=== PATIENT | male | born 1980 | race Caucasian/White ===

== ENCOUNTER 2021-12-19 08:05 | Emergency (ER) | payer MEDICARE, MEDICAID, SELFPAY ==
--- NOTE | ~2021-12-19 | CT_ITS ---
EXAMINATION: CT HEAD WITHOUT CONTRAST CLINICAL INFORMATION: Injury, rule out intracranial abnormality. COMPARISON: Head CT scan dated 10/06/2017. TECHNIQUE: Contiguous axial imaging was performed from the skull base to vertex without intravenous administration of contrast. Coronal and sagittal reformatted images were obtained. This CT examination was performed using dose optimization techniques as appropriate, variously including the following: *Automated exposure control *Adjustment of mA and/or kV according to patient size (this includes techniques or standardized protocols for targeted exams where dose is matched to indication/reason for exam; i.e. extremities or head) *Use of iterative reconstruction technique DLP: 719 mGy-cm FINDINGS: The cortical sulci are normal. The lateral ventricles are symmetrical. The third and fourth ventricles are in their normal midline position. The basilar and prepontine cisterns are unremarkable. There is no acute intra or extracerebral abnormality. There is no mass effect or midline shift. Sections through the bony calvarium are unremarkable. The paranasal sinuses are clear. The bony orbits and orbital contents are unremarkable. Mild mid nasal septal deviation, apex the left. CT/CT head/brain wo IV con IMPRESSION: No acute intracranial pathology.
[2021-12-19 08:08] VITALS: BP 120/64; PULSE 80; RESP 18; TEMP 36.8; O2SAT 96; BMI 26.4
--- NOTE | 2021-12-19 10:28 | ED_ITS ---
HPI - Head Injury General Chief complaint: Head Injury Stated complaint: head laceration Time Seen by Provider: 12/19/21 09:25 History of Present Illness HPI Narrative: Patient complains of laceration, headache, dizziness and 1 episode of vomiting after he accidentally hit himself in the head with the back of an Axe while splitting wood yesterday, no loss of consciousness, no retrograde amnesia no confusion Related Data Allergies Allergy/AdvReac Type Severity Reaction Status Date / Time latex [LATEX] Allergy Mild RASH Unverified 12/06/19 15:33 Review of Systems Review of Systems: Positive for headache dizziness and nausea after head injury yesterday Negatives are no loss of consciousness no retrograde amnesia no confusion no f ainting no feeling faint no vision changes no neck pain no numbness weakness or tingling no chest pain no shortness breath no abdominal pain no extremity pains or injuries no numbness no weakness no tingling Yes all other systems are reviewed and are negative PMFSH Past Medical History Source: nursing notes reviewed Social History Social History Advance Directives: No Advance Directives Information Provided: No Physical Exam Vital Signs: Vital Signs: Last Vital Signs Temp 98.2 F 12/19/21 08:08 Pulse 80 12/19/21 08:08 Resp 18 12/19/21 08:08 BP 120/64 12/19/21 08:08 Pulse Ox 96 12/19/21 08:08 O2 Del Method 12/19/21 08:08 BMI result Body Mass Index 26.4 General appearance comfortable no distress Head there is a 1.5 cm close laceration and a small hematoma at its base on the top of the scalp, there is no deformity felt, no raccoon eyes no Whitaker sign The neck is supple and nontender The chest is clear to auscultation no chest wall tenderness Abdomen soft nontender Extremities for range of motion x4 Neuro cranial nerves 2-12 intact as tested, cerebellar exam is normal, gait and balance are normal, interaction both comprehension and expression are normal and motor is 5/5 x4 Course Course Course Narrative: Head CT was negative, patient possibly has a concussion but no evidence of any dangerous injury he ambulates normally and is well-appearing The laceration on his head is 24 hours old and basically closed so no suturing was done Discharge Plan Discharge Clinical Impression: Laceration of scalp, Concussion Patient Disposition: Home, Self-Care Additional Instructions: The CT of her head was negative meaning no skull fracture no bleeding in the he ad no sign of any dangerous injury You may have a mild concussion which usually resolves on its own in a short amount of time The laceration 24 hours hold was already mostly closed it was not gaping and did not need any stitches now Return any time for any worse condition or any concerns Referrals: Tao Roberts MD [Primary Care Provider] - 1 Week Interventions: ED Discharge Assessment Last Done: 12/19/21 10:44 Discharge Date/Time: 12/19/21 10:44
== END 2021-12-19 10:44 | disposition home or self-care (01) ==
PROVIDERS: Emergency Provider Emergency Medicine; PCP Internal Medicine
DX: S01.01XA Laceration without foreign body of scalp, initial encounter (principal); S06.0X0A Concussion without loss of consciousness, initial encounter; W27.0XXA Contact with workbench tool, initial encounter; Y93.89 Activity, other specified; Y92.017 Garden or yard in single-family (private) house as the place of occurrence of the external cause; Y99.9 Unspecified external cause status
CPT/HCPCS: 70450; 99283; 99284

== ENCOUNTER 2021-12-23 16:23 | Emergency (ER) | payer MEDICARE, MEDICAID, SELFPAY ==
--- NOTE | ~2021-12-23 | XR_ITS ---
EXAMINATION: XR KNEE, RIGHT CLINICAL INFORMATION: Question foreign body COMPARISON: None TECHNIQUE: AP, lateral, and both oblique views of the right knee. FINDINGS: There is prepatellar soft tissue swelling. No fracture or malalignment. Joint spaces are well-preserved. No effusion. Bone mineralization is normal. No subcutaneous gas or radiodense foreign bodies. XR/XR knee RT 3V IMPRESSION: Prepatellar soft tissue swelling. No radiodense foreign bodies or subcutaneous gas. No effusion.
--- NOTE | ~2021-12-23 | XR_ITS ---
EXAMINATION: XR CHEST CLINICAL INFORMATION: Cough COMPARISON: Chest CT 10/06/2017 TECHNIQUE: Frontal view of the chest was obtained. FINDINGS: No mass or focal pneumonia. Normal lung volumes. No effusion or pneumothorax. Grossly normal heart and mediastinum, patient rotated to right. Nonobstructive gas pattern. No rib fracture. XR/XR chest 1V IMPRESSION: Unremarkable examination.
[2021-12-23 16:57] VITALS: BP 113/63; PULSE 84; RESP 16; TEMP 36.2; O2SAT 95; BMI 26.4
[2021-12-23 18:00] LABS: Influenza A PCR NEGATIVE (Negative); Influenza B PCR NEGATIVE (Negative); Resp Syncy Virus RNA Qual PCR NEGATIVE (Negative); SARS COV2 PCR INHOUSE NEGATIVE (Negative)
[2021-12-23 19:00] LABS: MANUAL DIFF FLAG NO
[2021-12-23 19:07] LABS: Basophils Absolute Auto 0.1 X10*3/uL (0.0-0.2); Basophils Percent Auto 0.5 % (0-2); Eosinophils Percent Auto 8.3 % (0-4); Hematocrit 37.3 % (42.0-52.0); Hemoglobin 12.7 g/dl (14.0-18.0); Imm Gran Abs Auto 0.05 X10*3/uL (0.00-0.03); Imm Gran Pct Auto 0.4 % (0.0-0.4); Lymphocytes Absolute Auto 1.9 X10*3/uL (1.2-4.9); Lymphocytes Percent Auto 16.5 % (20-40); Mean Corpuscular Hemoglobin 28.9 pg (27.0-33.0); Mean Platelet Volume 8.9 fL (9.4-12.4); Monocytes Absolute Auto 1.1 X10*3/uL (0.1-1.2); Monocytes Percent Auto 9.2 % (2-11); Neutrophils Absolute Auto 7.6 x10*3/uL (2.0-8.3); Neutrophils Percent Auto 65.1 % (45-73); Platelet Count 265 X10*3/uL (160-400); Red Blood Count 4.39 X10*6/uL (4.60-5.80); Red Cell Distribution Width 13.6 % (11.0-16.0); White Blood Count 11.7 X10*3/uL (4.8-10.8)
[2021-12-23 19:23] LABS: Alanine Aminotransferase 16 U/L (0-40); Albumin Level 4.3 g/dL (3.5-5.0); Alkaline Phosphatase 66 U/L (39-117); Anion Gap 16 (12-20); Aspartate Amino Transferase 20 U/L (5-37); Bilirubin Total 0.4 mg/dL (0.0-1.0); Blood Urea Nitrogen 11 mg/dL (9-16); Calcium 8.8 mg/dL (8.4-10.2); Carbon Dioxide 28 mmol/L (22-29); Chloride 99 mmol/L (96-108); Creatinine Clr Calc Pharmacy 110.9; Estimated Glomerular Filt Rate > 60; Glucose Random 118 mg/dL (60-115); Potassium 4.6 mmol/L (3.3-5.1); Sodium 138 mmol/L (135-145); Total Protein 6.6 g/dL (6.5-8.0)
[2021-12-23 20:22] VITALS: BP 134/58; PULSE 74; RESP 11; TEMP 37.2; O2SAT 95
--- NOTE | 2021-12-24 00:24 | ED_ITS ---
HPI - General Adult General Chief complaint: Upper Respiratory Symptoms Stated complaint: cough, congested? drug problem Time Seen by Provider: 12/23/21 22:15 Source: patient Mode of arrival: ambulatory Limitations: no limitations History of Present Illness HPI narrative: Patient presents emergency department with multiple complaints. He states that he has been experiencing a productive cough with yellow phlegm for approximately 2 weeks. He denies any chest pain associated with this. He is also reporting a concern for infection to his right knee. States he has had swelling and redness for approximately 1 week. States while at work he kneeled down onto something and thinks there may be a piece of glass in the knee. It is painful. He is able to ambulate with steady gait, and able to move the knee without complication. Furthermore, he reports a history of IV drug use, states that he is using heroin and crack cocaine and would like to see detox for this. Denies alcohol consumption. Denies suicidal or homicidal ideations. Overall, he denies any fevers, chills, headache, dizziness, lightheadedness, chest pain, palpitations, shortness of breath, difficulty breathing, nausea, vomiting, abdominal pain, numbness or tingling to the extremities, generalized weakness. Related Data Previous Rx's Medication Instructions Recorded cephalexin 500 mg capsule 500 mg PO QID 7 days #28 caps 12/24/21 doxycycline hyclate 100 mg capsule 100 mg PO BID 7 days #14 caps 12/24/21 Allergies Allergy/AdvReac Type Severity Reaction Status Date / Time latex [LATEX] Allergy Mild RASH Verified 12/23/21 17:02 Review of Systems Review of Systems: Constitutional: No weight loss, fever, chills, weakness or fatigue. Skin: No rash or itching. Cardiovascular: No chest pain, chest pressure or chest discomfort. No palpitations or pedal edema. Respiratory: No shortness of breath. Positive cough with sputum production Gastrointestinal: No anorexia, nausea, vomiting or diarrhea. No abdominal pain Genitourinary: No burning micturition. No urinary frequency or incontinence. Musculoskeletal: No muscle pain, back pain. Positive knee pain with concern for infection Psychiatric: No depression or anxiety. Yes all other systems are reviewed and are negative PMFSH Past Medical History Attestation statement: The following information was validated with the patient. Source: old records reviewed Social History Social History (Reviewed 12/24/21 @ 01:17 by SAMANTHA Mcqueen Advance Directives: No Advance Directives Information Provided: No Physical Exam ED Vital Signs: Vital Signs - 24 hr 12/23/21 16:57 12/23/21 20:22 Temperature 97.2 F 99.0 F Pulse Rate 84 74 Respiratory Rate 16 11 L Blood Pressure 113/63 134/58 L Pulse Oximetry 95 95 Oxygen Delivery Method Room Air Room Air BMI result Body Mass Index 26.4 Appearance: Alert.?Oriented to person, place and time. No acute distress.?Normal affect. Eyes: Pupils equal, round and reactive to light.? ENT: Pharynx normal.?? Neck: Normal inspection.? Neck supple.?? CVS: Heart sounds normal. Normal heart rate and rhythm.? Pulses normal.?? Respiratory: No respiratory distress.? Lung sounds clear to auscultation bilaterally?? Abdomen: Soft and non-tender. Normoactive bowel sounds. ? Skin: Skin warm and dry.? Normal skin color.? ? Extremities: No lower extremity edema.? No calf ttp. Left knee with prepatellar erythema, warmth, swelling, and small areas central fluctuance and purulence. Full AROM to the right knee. Palpable 2+ DP/PT pulse bilaterally Neuro: Moves all extremities spontaneously. Sensation intact bilaterally. CN II- XII intact. No focal neuro deficits. Ambulates with normal steady gait. Course Course Course Narrative: Review of labs obtained from triage reveals a very mild leukocytosis at 11.7, normocytic anemia, and unremarkable CMP. COVID-19, influenza, and RSV testing are negative. He is overall well-appearing. Afebrile, without tachycardia, tachypnea, or hypoxia. Speaking clear full sentences. Lung sounds are clear bilaterally. Given productive cough over the past few weeks suspect bronchitis, discussed plan of care for treatment with supportive measures. In the event that there is a community acquired pneumonia that was not identified on chest x- ray, patient is going to be started on doxycycline for cellulitis which will also cover CAP. Regarding his right knee, there is a very small pocket of pus very superficially, needle aspiration with less than 0.5 mL of pus able to be drained, there is surrounding cellulitis and erythema, he is concerned that there may be retained foreign body therefore will obtain XR for further hanna luation. Regarding his request for detox, will refer patient to care team/ coach operator for assistance. Reevaluation(s) Reevaluation #1: X-ray of the right knee reveals no radiodense foreign body or subcutaneous gas. There is prepatellar soft tissue swelling consistent with physical examination. Again reviewed plan of care. Cough likely secondary to bronchitis, possible community-acquired pneumonia not detected on chest x-ray. Right knee consistent with prepatellar cellulitis, given history of IV drug use will cover with cephalexin and doxycycline. Patient evaluated by care team and is requesting detox for heroin and crack cocaine at this time, offered to stay overnight so that he may speak with coach operator in the morning and have assistance with detox. Patient declines at this time. He would like to be discharged. Reviewed worsening signs symptoms to return back to emergency department for care all questions were answered. Patient discharged home in stable condition. Medical Decision Making Medical Records Medical records reviewed: Yes I reviewed the patient's medical records. Lab Data Lab results reviewed: Yes I reviewed the patient's lab results. Result diagrams: 12/23/21 18:55 12/23/21 18:55 Labs: Lab Results 12/23/21 12/23/21 12/23/21 Range/Units 17:06 18:55 18:55 WBC 11.7 H (4.8-10.8) X10*3/uL RBC 4.39 L (4.60-5.80) X10*6/uL Hgb 12.7 L (14.0-18.0) g/dl Hct 37.3 L (42.0-52.0) % MCV 85.0 (80.0-98.0) fL MCH 28.9 (27.0-33.0) pg MCHC 34.0 (31.0-36.0) g/dl RDW 13.6 (11.0-16.0) % Plt Count 265 (160-400) X10*3/uL MPV 8.9 L (9.4-12.4) fL Immature Gran % (Auto) 0.4 (0.0-0.4) % Neut % (Auto) 65.1 (45-73) % Lymph % (Auto) 16.5 L (20-40) % Charles % (Auto) 9.2 (2-11) % Eos % (Auto) 8.3 H (0-4) % Baso % (Auto) 0.5 (0-2) % Lymph # (Auto) 1.9 (1.2-4.9) X10*3/uL Charles # (Auto) 1.1 (0.1-1.2) X10*3/uL Eos # (Auto) 1.0 H (0.0-0.4) X10*3/uL Baso # (Auto) 0.1 (0.0-0.2) X10*3/uL Abs Immat Gran (auto) 0.05 H (0.00-0.03) X10*3/uL Absolute Neuts (auto) 7.6 (2.0-8.3) x10*3/uL Absolute Nucleated RBC 0.000 (0.0-0.012) X10*3/uL Nucleated RBC % (auto) 0.0 (0.0-0.2) /100WBC Sodium 138 (135-145) mmol/L Potassium 4.6 (3.3-5.1) mmol/L Chloride 99 (96-108) mmol/L Carbon Dioxide 28 (22-29) mmol/L Anion Gap 16 (12-20) BUN 11 (9-16) mg/dL Creatinine 1.00 (0.5-1.4) mg/dL Estim Creat Clear Calc 110.9 Estimated GFR > 60 Random Glucose 118 H (60-115) mg/dL Calcium 8.8 (8.4-10.2) mg/dL Total Bilirubin 0.4 (0.0-1.0) mg/dL AST 20 (5-37) U/L ALT 16 (0-40) U/L Alkaline Phosphatase 66 (39-117) U/L Total Protein 6.6 (6.5-8.0) g/dL Albumin 4.3 (3.5-5.0) g/dL Influenza Type A (PCR) NEGATIVE (Negative) Influenza Type B (PCR) NEGATIVE (Negative) RSV RNA Qual (PCR) NEGATIVE (Negative) SARS-CoV-2 RNA (RT-PCR) NEGATIVE (Negative) Imaging Data Chest x-ray: Radiologist's impression: XR/XR chest 1V IMPRESSION: Unremarkable examination. XR knee: Radiologist's impression: XR/XR knee RT 3V IMPRESSION: Prepatellar soft tissue swelling. No radiodense foreign bodies or subcutaneous gas. No effusion. ? Discharge Plan Discharge Clinical Impression: Bronchitis, Polysubstance abuse Cellulitis Qualifiers: Site of cellulitis: other site Qualified Code(s): L03.818 - Cellulitis of other sites Patient Disposition: Home, Self-Care Instructions: Cellulitis (ED), Acute Bronchitis (ED) Additional Instructions: Your cough is most likely due to bronchitis, the antibiotics your going to be placed on may also help with this. You have cellulitis to your right knee, you will need to continue taking Keflex and doxycycline for 1 week, please complete this entire course. If you develop any worsening symptoms you should return back to the emergency department. This might include fevers, chills, worsening pain, chest pain, shortness of breath, difficulty breathing. You have been given resources for detox centers to contact. Prescriptions: New cephalexin 500 mg capsule 500 mg PO QID 7 Days Qty: 28 0RF doxycycline hyclate 100 mg capsule 100 mg PO BID 7 Days Qty: 14 0RF Interventions: ED Discharge Assessment Last Done: 12/24/21 00:56 Discharge Date/Time: 12/24/21 00:58
--- NOTE | 2021-12-24 00:51 | MHC.CARE ---
Pt presents to the ED seeking detox. Pt initially agreed to wanting to stay the night for assistance however, once his mother left and ready to transfer to pod, pt declined wanting treatment. Pt will be discharged at this time.
[2021-12-24] MEDS: cephALEXin 500 MG CAPSULE PO (00:55)
== END 2021-12-24 00:58 | disposition home or self-care (01) ==
PROVIDERS: Emergency Provider Emergency Medicine; PCP Internal Medicine
DX: J40 Bronchitis, not specified as acute or chronic (principal); L03.818 Cellulitis of other sites; M25.561 Pain in right knee; F14.10 Cocaine abuse, uncomplicated; R05.9 Cough, unspecified; Z20.822 Contact with and (suspected) exposure to COVID-19
CPT/HCPCS: 0241U; 71045; 73562; 80053; 85025; 99282; 99284

== ENCOUNTER 2022-08-22 11:01 | Emergency (ER) | payer MEDICARE, MEDICAID, SELFPAY ==
--- NOTE | 2022-08-22 11:04 | ED_ITS ---
HPI - General Adult General Chief complaint: General Medical Stated complaint: FEELS TWITCHY/SOB/NAUSEA S/P METHADONE LAST NOC Time Seen by Provider: 08/22/22 11:02 Source: patient and EMS Mode of arrival: EMS Limitations: no limitations History of Present Illness HPI narrative: Patient is a 42-year-old male with history of IV drug use presenting to the emergency department after having an episode of twitching and not feeling right prior to arrival. Reports taking 200mg of methadone last night which was not prescribed to him. States has never used methadone before. Reports has not used heroin in one year, denies any other drug or alcohol use. Reports currently feeling drowsy/fatigued. Denies current chest pain or shortness of breath. Denies any loss of consciousness, dizziness, lightheadedness. Denies any fall or other injury. Reports palpitations and chest pressure associated with episode of twitching. Patient unable to elaborate further on not feeling right. Denies abdominal pain, nausea, vomiting, diarrhea. Denies fevers. MD complaint: muscle spasms Onset (ago): hour(s) Associated symptoms: other (palpitations, chest pressure) Treatments prior to arrival: none Related Data Previous Rx's Medication Instructions Recorded cephalexin 500 mg capsule 500 mg PO QID 7 days #28 caps 12/24/21 doxycycline hyclate 100 mg capsule 100 mg PO BID 7 days #14 caps 12/24/21 Allergies Allergy/AdvReac Type Severity Reaction Status Date / Time latex [LATEX] Allergy Mild RASH Verified 12/23/21 17:02 Review of Systems Review of Systems: As per HPI. Yes all other systems are reviewed and are negative Constitutional: Constitutional: Reports as per HPI COUNT INCLUDES [facility] Social History Social History Alcohol intake: former Smoked in Last 30 Days: Yes Use of substances other than those prescribed or required for medical reasons: Yes Substance Use Type: Heroin and Opiates Advance Directives: No Advance Directives Information Provided: No Physical Exam ED Vital Signs: Vital Signs - 24 hr 08/22/22 11:13 Temperature 98.4 F Pulse Rate 58 Respiratory Rate 16 Blood Pressure 139/62 Pulse Oximetry 100 Oxygen Delivery Method Room Air BMI result Body Mass Index 27.0 Vital signs have been reviewed and appear to be correct. Blood pressure normal. Heart rate normal. Respiratory rate normal. Temperature normal. Oxygen saturation normal. Const General: cooperative, no acute distress and tired appearing Nutritional Appearance: average body habitus Orientation/consciousness: oriented to person, oriented to place, oriented to time and patient oriented x3 Limitations: no limitations HENMT Head: Yes normocephalic and Yes atraumatic Ears: external ears normal General nose exam: Normal external nose present Face and sinus: Yes face symmetric Mouth: oropharynx normal and moist mucous membranes Throat: Yes uvula midline Eyes Pupils: Equal, round and reactive pupils present Neck Neck: Yes normal visual inspection and Yes supple Resp Effort & Inspection: normal respiratory effort and able to speak in complete sentences Auscultation: clear to auscultation bilaterally Cardio Rate: regular rate Rhythm: regular rhythm Heart sounds: S1 normal heart sound present and S2 normal heart sound present GI Palpation (GI): Soft to palpation and nontender Auscultation: normoactive bowel sounds General: Yes no CVA tenderness Back/Spine/Pelvis Back: no CVA tenderness Skin General skin exam: elasticity normal and turgor normal Neuro General: oriented to person, oriented to place, oriented to time, patient oriented x3, moves all extremities, no focal motor deficits and CN's II-XI intact bilaterally Cranial nerves: Yes Equal, round and reactive pupils present Cognition (Neuro): normal cognition Extrem General: Yes full ROM, Yes no pedal edema and Yes no calf tenderness Psych Mental Status: mental status grossly normal Affect: normal affect Thought process: Normal thought process present Course Course Course Narrative: 12:54 Notified by RN that patient refused IV and IV fluids. Instructed nurse to bring patient a pitcher of water and encourage PO fluids for elevated BUN and elevated CK. Troponin negative. RN then returned stating that patient had eloped. Medical Decision Making Medical Decision Making [facility] Narrative: Patient is a 42-year-old male with history of IV drug use presenting to the emergency department after having an episode of twitching and not feeling right prior to arrival. On exam patient appears drowsy, wakes to voice, A+Ox3, normal neurological exam without focal findings, LS CTA throughout, RRR, abdomen soft and nontender. Given reported history, feel symptoms likely adverse effect of methadone, also concerned for electrolyte abnormalities, possible seizure, ACS, rhabdo. Plan: EKG, labs including troponin and CK, UA, utox Differential Diagnosis Differential Diagnoses: The differential diagnosis associated with the presentation includes As above. Lab Data MDM Lab Attestation statement: I reviewed the patient's lab results. 08/22/22 12:00 08/22/22 12:00 Labs: Lab Results 08/22/22 08/22/22 08/22/22 Range/Units 12:00 12:00 12:00 WBC 11.1 H (4.8-10.8) X10*3/uL RBC 5.09 (4.60-5.80) X10*6/uL Hgb 14.4 (14.0-18.0) g/dl Hct 43.4 (42.0-52.0) % MCV 85.3 (80.0-98.0) fL MCH 28.3 (27.0-33.0) pg MCHC 33.2 (31.0-36.0) g/dl RDW 12.7 (11.0-16.0) % Plt Count 243 (160-400) X10*3/uL MPV 9.1 L (9.4-12.4) fL Immature Gran % (Auto) 0.4 (0.0-0.4) % Neut % (Auto) 80.2 H (45-73) % Lymph % (Auto) 11.2 L (20-40) % [place] % (Auto) 6.5 (2-11) % Eos % (Auto) 1.4 (0-4) % Baso % (Auto) 0.3 (0-2) % Lymph # (Auto) 1.2 (1.2-4.9) X10*3/uL [place] # (Auto) 0.7 (0.1-1.2) X10*3/uL Eos # (Auto) 0.2 (0.0-0.4) X10*3/uL Baso # (Auto) 0.0 (0.0-0.2) X10*3/uL Abs Immat Gran (auto) 0.04 H (0.00-0.03) X10*3/uL Absolute Neuts (auto) 8.9 H (2.0-8.3) x10*3/uL Absolute Nucleated RBC 0.000 (0.0-0.012) X10*3/uL Nucleated RBC % (auto) 0.0 (0.0-0.2) /100WBC Sodium 135 (135-145) mmol/L Potassium 4.7 (3.3-5.1) mmol/L Chloride 97 (96-108) mmol/L Carbon Dioxide 29 (22-29) mmol/L Anion Gap 14 (12-20) BUN 26 H (9-16) mg/dL Creatinine 1.29 (0.5-1.4) mg/dL Estim Creat Clear Calc 85.1 Estimated GFR > 60 Random Glucose 122 H (60-115) mg/dL Calcium 10.0 D (8.4-10.2) mg/dL Magnesium 2.3 (1.6-2.6) mg/dL Total Bilirubin 0.8 (0.0-1.0) mg/dL AST 28 (5-37) U/L ALT 31 (0-40) U/L Alkaline Phosphatase 66 (39-117) U/L Total Creatine Kinase (38-174) U/L Troponin I High Sens < 2.7 (<3.5-35.0) ng/L Total Protein 7.2 (6.5-8.0) g/dL Albumin 4.7 (3.5-5.0) g/dL 08/22/22 Range/Units 12:00 WBC (4.8-10.8) X10*3/uL RBC (4.60-5.80) X10*6/uL Hgb (14.0-18.0) g/dl Hct (42.0-52.0) % MCV (80.0-98.0) fL MCH (27.0-33.0) pg MCHC (31.0-36.0) g/dl RDW (11.0-16.0) % Plt Count (160-400) X10*3/uL MPV (9.4-12.4) fL Immature Gran % (Auto) (0.0-0.4) % Neut % (Auto) (45-73) % Lymph % (Auto) (20-40) % [place] % (Auto) (2-11) % Eos % (Auto) (0-4) % Baso % (Auto) (0-2) % Lymph # (Auto) (1.2-4.9) X10*3/uL [place] # (Auto) (0.1-1.2) X10*3/uL Eos # (Auto) (0.0-0.4) X10*3/uL Baso # (Auto) (0.0-0.2) X10*3/uL Abs Immat Gran (auto) (0.00-0.03) X10*3/uL Absolute Neuts (auto) (2.0-8.3) x10*3/uL Absolute Nucleated RBC (0.0-0.012) X10*3/uL Nucleated RBC % (auto) (0.0-0.2) /100WBC Sodium (135-145) mmol/L Potassium (3.3-5.1) mmol/L Chloride (96-108) mmol/L Carbon Dioxide (22-29) mmol/L Anion Gap (12-20) BUN (9-16) mg/dL Creatinine (0.5-1.4) mg/dL Estim Creat Clear Calc Estimated GFR Random Glucose (60-115) mg/dL Calcium (8.4-10.2) mg/dL Magnesium (1.6-2.6) mg/dL Total Bilirubin (0.0-1.0) mg/dL AST (5-37) U/L ALT (0-40) U/L Alkaline Phosphatase (39-117) U/L Total Creatine Kinase 578 H (38-174) U/L Troponin I High Sens (<3.5-35.0) ng/L Total Protein (6.5-8.0) g/dL Albumin (3.5-5.0) g/dL Independent Interpretation I performed an independent interpretation of an: EKG Interpretation: EKG: sinus bradycardia, rate 56, normal [place] and QT intervals, no evidence of STEMI External Record Review External record reviewed: Inpatient record, Office record and Outpatient record Chronic Conditions Patient?s care impacted by: Other (MICHAEL) Discharge Plan Discharge Clinical Impression: Muscle twitching Patient Disposition: Elopement Prescriptions: No Action cephalexin 500 mg capsule 500 mg PO QID 7 Days Qty: 28 0RF doxycycline hyclate 100 mg capsule 100 mg PO BID 7 Days Qty: 14 0RF
[2022-08-22 11:13] VITALS: BP 139/62; BP 162/90; PULSE 58; PULSE 90; RESP 16; TEMP 36.9; O2SAT 100; O2SAT 98; BMI 27.0
--- NOTE | 2022-08-22 11:18 | PC.NURSE ---
pt AOx4, reports feeling jittery, nauseas, short of breath, and very weird after taking 200mg methadon last night which he has never taken before. pt denies current drug use but does admit to previous heroin use. pt reports feeling very tired. Resp even and unlabored, vitals all WNL, ekg monitor tech on and call eddy within reach. awaiting ED provider
--- NOTE | 2022-08-22 11:28 | ECG_ITS ---
Test Reason : chest pressure, palpitations Blood Pressure : / mmHG Vent. Rate : 056 BPM Atrial Rate : 056 BPM P-R Int : 156 ms QRS Dur : 098 ms QT Int : 432 ms P-R-T Axes : 034 033 014 degrees QTc Int : 416 ms Sinus bradycardia Nonspecific T wave abnormality Abnormal ECG No previous ECGs available Referred By: Farzaneh Rodas Electronically Signed By:Arley Moon
[2022-08-22 12:05] LABS: MANUAL DIFF FLAG NO
[2022-08-22 12:06] LABS: Basophils Percent Auto 0.3 % (0-2); Eosinophils Absolute Auto 0.2 X10*3/uL (0.0-0.4); Eosinophils Percent Auto 1.4 % (0-4); Hematocrit 43.4 % (42.0-52.0); Hemoglobin 14.4 g/dl (14.0-18.0); Imm Gran Abs Auto 0.04 X10*3/uL (0.00-0.03); Imm Gran Pct Auto 0.4 % (0.0-0.4); Lymphocytes Absolute Auto 1.2 X10*3/uL (1.2-4.9); Lymphocytes Percent Auto 11.2 % (20-40); Mean Corpuscular HGB Conc 33.2 g/dl (31.0-36.0); Mean Corpuscular Hemoglobin 28.3 pg (27.0-33.0); Mean Corpuscular Volume 85.3 fL (80.0-98.0); Mean Platelet Volume 9.1 fL (9.4-12.4); Monocytes Absolute Auto 0.7 X10*3/uL (0.1-1.2); Monocytes Percent Auto 6.5 % (2-11); Neutrophils Absolute Auto 8.9 x10*3/uL (2.0-8.3); Neutrophils Percent Auto 80.2 % (45-73); Platelet Count 243 X10*3/uL (160-400); Red Blood Count 5.09 X10*6/uL (4.60-5.80); Red Cell Distribution Width 12.7 % (11.0-16.0); White Blood Count 11.1 X10*3/uL (4.8-10.8)
[2022-08-22 12:23] LABS: Alanine Aminotransferase 31 U/L (0-40); Albumin Level 4.7 g/dL (3.5-5.0); Alkaline Phosphatase 66 U/L (39-117); Anion Gap 14 (12-20); Aspartate Amino Transferase 28 U/L (5-37); Bilirubin Total 0.8 mg/dL (0.0-1.0); Blood Urea Nitrogen 26 mg/dL (9-16); Carbon Dioxide 29 mmol/L (22-29); Chloride 97 mmol/L (96-108); Creatinine Clr Calc Pharmacy 85.1; Estimated Glomerular Filt Rate > 60; Glucose Random 122 mg/dL (60-115); Magnesium 2.3 mg/dL (1.6-2.6); Potassium 4.7 mmol/L (3.3-5.1); Sodium 135 mmol/L (135-145); Total Protein 7.2 g/dL (6.5-8.0)
[2022-08-22 12:31] LABS: Troponin-I High Sensitivity < 2.7 ng/L (<3.5-35.0)
--- NOTE | 2022-08-22 12:55 | PC.NURSE ---
when preparing to start IV and admin fluids pt refused and said he wanted to leave. this RN communicated to BATTERY CONTAINER TESTER ALUMINUM. BATTERY CONTAINER TESTER ALUMINUM asked to instead get pt some water and ask him to wait a couple minutes to be seen. When bringing pt a pitcher of water, he was found in the hallway walking out and attempting to leave. BATTERY CONTAINER TESTER ALUMINUM aware. Pt did not have an IV, and left walking with steady gait, speaking clearly and in full sentences in no apparent distress.
== END 2022-08-22 13:09 | disposition left against medical advice (07) ==
PROVIDERS: Registered Nurse Emergency; Emergency Provider Internal Medicine
DX: R25.3 Fasciculation (principal); R06.02 Shortness of breath; R00.1 Bradycardia, unspecified; R11.2 Nausea with vomiting, unspecified; Z79.899 Other long term (current) drug therapy
CPT/HCPCS: 36415; 80053; 82550; 83735; 84484; 85025; 93005; 99283; 99284